=== PATIENT | male | born 2000 | race Caucasian/White ===

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

== ENCOUNTER → 2025-04-16 | Outpatient (CLI) | payer OTHER ==
[2025-04-16 16:33] LABS: Chol/HDL Ratio 3.52 Ratio; VLDL Calculation 18.18 mg/dL (5.00-40.00)
== END | disposition home or self-care (01) ==
LOC: LABWHC1 09:44
PROVIDERS: ATTEND Family Medicine
DX: Z00.00 Encounter for general adult medical examination without abnormal findings (principal)
CPT/HCPCS: 36415; 80061; 83036